=== PATIENT | female | born 1995 | race Caucasian/White ===

== ENCOUNTER 2021-11-30 09:52 | Outpatient (REF) | payer BC, SELFPAY ==
[2021-11-30 12:01] LABS: Monotest Negative (Negative)
== END 2021-11-30 09:53 | disposition home or self-care (01) ==
LOC: HO.HMGCLDS 09:52
PROVIDERS: Visit Provider Physician Assistant
DX: J02.9 Acute pharyngitis, unspecified (principal)
CPT/HCPCS: 36415; 86308